=== PATIENT | female | born 1995 | race African-American/Black ===

== ENCOUNTER 2017-11-01 22:08 | Emergency (ER) | payer SELFPAY ==
[~2017-11-01] VITALS: Ht 172.7 cm; Wt 63.6 kg
[2017-11-01 22:09] VITALS: BP 134/85
== END 2017-11-01 22:33 | disposition left against medical advice (07) ==
LOC: EMS 22:10
DX: Z53.21 Procedure and treatment not carried out due to patient leaving prior to being seen by health care provider (principal)